=== PATIENT | female | born 1960 | race Two or more races ===

== ENCOUNTER 2021-09-11 22:07 | Emergency (ER) | payer SELFPAY ==
[~2021-09-11] VITALS: Ht 157.5 cm; Wt 74.8 kg
[2021-09-11 22:07] VITALS: BP 150/84
[2021-09-12] MEDS ORDERED: AMOX-277 PO (09:59)
== END 2021-09-12 03:34 | disposition left against medical advice (07) ==
LOC: ER 22:22
DX: S51.852A Open bite of left forearm, initial encounter (principal); Z53.29 Procedure and treatment not carried out because of patient's decision for other reasons; W54.0XXA Bitten by dog, initial encounter; Y93.89 Activity, other specified; Y92.89 Other specified places as the place of occurrence of the external cause; Y99.8 Other external cause status
CPT/HCPCS: 73090; 73100

== ENCOUNTER 2021-09-12 06:25 | Emergency (ER) | payer SELFPAY ==
[~2021-09-12] VITALS: Ht 157.5 cm; Wt 74.8 kg
[2021-09-12 09:02] VITALS: BP 168/88
[2021-09-12] MEDS ORDERED: LIDOCAINE 1% HCL (LOCAL ANESTH.) INJ 20ML MDV ID ONE (09:30)
[2021-09-12] MEDS ORDERED: AMOX-277 PO (09:59)
[2021-09-12] MEDS ORDERED: TETANUS-DIPTH-ACEL PERTUSSIS 0.5ML SYR Tdap IM ONE (10:00)
== END 2021-09-12 10:40 | disposition home or self-care (01) ==
LOC: ER 06:25
DX: S51.812A Laceration without foreign body of left forearm, initial encounter (principal); F12.10 Cannabis abuse, uncomplicated; Z88.0 Allergy status to penicillin; Z88.6 Allergy status to analgesic agent; S61.412A Laceration without foreign body of left hand, initial encounter; W54.0XXA Bitten by dog, initial encounter; Y93.89 Activity, other specified; Y92.89 Other specified places as the place of occurrence of the external cause; Y99.8 Other external cause status
CPT/HCPCS: 12002; 90471; 90715

== ENCOUNTER 2021-09-15 11:14 | Emergency (ER) | payer MEDICAID, OTHER ==
[~2021-09-15] VITALS: Ht 157.5 cm; Wt 74.8 kg
[~2021-09-15 11:14] MED LIST: AMOX-277 PO
[2021-09-15 11:36] VITALS: BP 134/97
== END 2021-09-15 12:13 | disposition home or self-care (01) ==
LOC: ER 11:14
DX: S51.812D Laceration without foreign body of left forearm, subsequent encounter (principal); Z79.2 Long term (current) use of antibiotics; Z88.0 Allergy status to penicillin; Z88.5 Allergy status to narcotic agent; W54.0XXD Bitten by dog, subsequent encounter

== ENCOUNTER 2021-10-03 09:57 | Emergency (ER) | payer MEDICAID ==
[~2021-10-03] VITALS: Ht 157.5 cm; Wt 74.8 kg
[2021-10-03 11:23] VITALS: BP 177/99
== END 2021-10-03 12:32 | disposition home or self-care (01) ==
LOC: ER 09:57
DX: S61.412D Laceration without foreign body of left hand, subsequent encounter (principal); Z79.2 Long term (current) use of antibiotics; Z88.0 Allergy status to penicillin; Z88.5 Allergy status to narcotic agent; W54.0XXD Bitten by dog, subsequent encounter